=== PATIENT | female | born 1975 | race Caucasian/White ===

== ENCOUNTER 2017-01-24 13:02 | Emergency (ER) | payer MEDICAID ==
[~2017-01-24] VITALS: Ht 170.2 cm; Wt 54.4 kg
[2017-01-24] MEDS ORDERED: TOPI200T PO (13:30)
[2017-01-24] MEDS ORDERED: PANT40TA2 PO (13:30)
[2017-01-24] MEDS ORDERED: ZOLP5TAB2 PO (13:30)
[2017-01-24] MEDS ORDERED: RISP1TAB7 PO (13:30)
[2017-01-24] MEDS ORDERED: SPIR100T3 PO (13:30)
[2017-01-24] MEDS ORDERED: ESCI10TA PO (13:30)
[2017-01-24] MEDS ORDERED: FURO80TA87 PO (13:30)
[2017-01-24] MEDS ORDERED: ONDA4TAB8 PO (13:34)
[2017-01-24] MEDS ORDERED: TRENTAL PO (13:34)
[2017-01-24 13:40] LABS: BASOPHILS # (AUTO) 0.2 K/uL (0.0-8.0); BASOPHILS % (AUTO) 1.5 % (0.0-2.0); EOSINOPHILS # (AUTO) 0.1 K/uL (0.0-0.7); EOSINOPHILS % (AUTO) 0.7 % (0.0-7.0); HEMATOCRIT 38.4 % (37-47); HEMOGLOBIN 12.9 G/DL (12.0-16.0); LYMPHOCYTES % (AUTO) 29.9 % (20.5-51.5); MEAN CORPUSCULAR HEMOGLOBIN 33.1 UUG (27.0-31.0); MEAN CORPUSCULAR HGB CONC 34 g/dL (32.0-37.0); MEAN CORPUSCULAR VOLUME 98.5 FL (81.0-99.0); MONOCYTES # (AUTO) 0.8 K/UL (0.1-1.30); MONOCYTES % (AUTO) 6.3 % (0.0-11.0); NEUTROPHILS # (AUTO) 8.2 K/UL (1.8-8.9); NEUTROPHILS % (AUTO) 61.6 % (38.5-71.5); PLATELET COUNT (AUTO) 502 K/UL (150-450); RED CELL DISTRIBUTION WIDTH 13.9 % (11.5-14.5); WHITE BLOOD COUNT (AUTO) 13.3 K/UL (4.0-11.2)
[2017-01-24 13:53] LABS: ALANINE AMINOTRANSFERASE 24 U/L (14-59); ALBUMIN 3.2 g/dL (3.4-5.0); ALKALINE PHOSPHATASE 104 U/L (50-136); ASPARTATE AMINOTRANSFERASE 31 U/L (15-37); BILIRUBIN,TOTAL 0.2 mg/dL (0.2-1.0); CALCIUM 8.3 mg/dL (8.5-10.1); CARBON DIOXIDE 28 mmol/L (21-32); CHLORIDE 105 mmol/L (98-107); CREATININE 0.6 mg/dL (0.6-1.3); GFR 111 mL/min (>60); GLUCOSE 106 mg/dL (74-106); SODIUM SERUM 143 mmol/L (136-145); TOTAL PROTEIN, SERUM 7.1 g/dL (6.4-8.2); UREA NITROGEN, BLOOD 9 mg/dL (7-18)
[2017-01-24 13:56] LABS: ETHANOL 296 MG/DL (0-0)
[2017-01-24 14:04] LABS: BILIRUBIN,DIRECT < 0.1 mg/dL (0.0-0.2); LIPASE 326 U/L (73-393)
[2017-01-24 14:05] LABS: ACETAMINOPHEN < 2.0 ug/mL (10-30)
--- NOTE | 2017-01-24 14:15 | NUR ---
Pt resting in gurney with eyes closed and no s/s of acute distress noted at this time.
[2017-01-24 14:18] LABS: BAND % (MANUAL) 2 % (0-10); LYMPHOCYTES % (MANUAL) 31 % (20-40); MONOCYTES % (MANUAL) 8 % (2-10); NEUTROPHILS % (MANUAL) 59 % (42-75); PLATELET ESTIMATE SLIGHT INCREASED
[2017-01-24 14:53] LABS: *BILIRUBIN,URIN NEGATIVE (NEGATIVE); *BLOOD, URINE NEGATIVE (NEGATIVE); *CLARITY,URINE CLEAR (CLEAR); *COLOR,URINE STRAW (YELLOW); *KETONES,URINE NEGATIVE (NEGATIVE); *PROTEIN,URINE NEGATIVE (NEGATIVE); *UROBILINOGEN,URINE 0.2 E.U./dl (NORMAL); LEUKOCYTE ESTERASE ,URINE NEGATIVE (NEGATIVE); NITRITE, URINE NEGATIVE (NEGATIVE); UGLUCOSE NEGATIVE (NEGATIVE)
--- NOTE | 2017-01-24 14:53 | NUR ---
Spoke with David Resendiz for psych eval as requested by Dr Beauchamp. Per David pt's ETOH level is too high at this time, he will follow up later when pt's level is lower. Dr Beauchamp notified.
[2017-01-24 14:58] LABS: *AMPHETAMINE, URINE NEGATIVE (NEGATIVE); *BARBITURATE, URINE NEGATIVE (NEGATIVE); *CANNABINOID, URINE NEGATIVE (NEGATIVE); *COCCAINE, URINE NEGATIVE (NEGATIVE); *OPIATE, URINE NEGATIVE (NEGATIVE); *PHENCYCLIDINE SCREEN,URINE NEGATIVE (NEGATIVE)
[2017-01-24 15:14] LABS: BACTERIA,URINE FEW /HPF (NONE SEEN); SQUAMOUS EPITHELIAL CELL,UR FEW /HPF (NONE SEEN); WBC,URINE 0-3 /HPF (0-3)
--- NOTE | 2017-01-24 15:43 | NUR ---
Pt sleeping, NAD noted.
--- NOTE | 2017-01-24 17:45 | NUR ---
Pt is awake, alert and oriented x 4, states she is hungry and would like pain medication. Snacks provided for pt, dinner tray ordered, Dr Beauchamp notified of pt's request for pain medication. Blood drawn by lab fo repeat ETOH level.
--- NOTE | 2017-01-24 18:35 | NUR ---
Pt is sitting in [facility] and eating dinner, pend psych eval.
--- NOTE | 2017-01-24 18:50 | NUR ---
David Resendiz is here for psych eval.
[2017-01-24] MEDS ORDERED: CHLORDIAZEPOXIDE HCL 25 MG CAPSULE PO ONE (20:00)
[2017-01-24] MEDS ORDERED: CHLORDIAZEPOXIDE HCL 25 MG CAPSULE ONE (20:27)
[2017-01-24 22:38] LABS: ETHANOL < 3 MG/DL (0-0)
--- NOTE | 2017-01-24 23:07 | NUR ---
faxed alcohol % to Jill intake for [facility] [phone]
--- NOTE | 2017-01-24 23:17 | NUR ---
Spoke with Jill ( ) intake from [facility]. Informed that patient is accepted. Dr Pizano is accepting
--- NOTE | 2017-01-24 23:22 | NUR ---
ETA of Med Response is 30mins
--- NOTE | 2017-01-25 00:01 | NUR ---
Gave SBAR report to Med response team who will take Patient to [facility]
[2017-01-25 00:10] VITALS: BP 118/84
== END 2017-01-25 00:10 | disposition short-term general hospital (02) ==
LOC: ER 13:05
DX: R10.9 Unspecified abdominal pain (principal); F32.9 Major depressive disorder, single episode, unspecified; G89.29 Other chronic pain; F10.129 Alcohol abuse with intoxication, unspecified; I25.2 Old myocardial infarction; F31.9 Bipolar disorder, unspecified; E03.9 Hypothyroidism, unspecified; C50.919 Malignant neoplasm of unspecified site of unspecified female breast; F10.20 Alcohol dependence, uncomplicated; Z90.49 Acquired absence of other specified parts of digestive tract
CPT/HCPCS: 36415; 80307; 83690; 84703; 85025; A4663; G0480-TC; G6040-TC

== ENCOUNTER 2018-07-05 14:14 | Emergency (ER) | payer MEDICAID ==
[~2018-07-05] VITALS: Ht 170.2 cm; Wt 55.8 kg
[~2018-07-05 14:14] MED LIST: ESCI10TA PO; FURO80TA87 PO; ONDA4TAB8 PO; PANT40TA2 PO; RISP1TAB7 PO; SPIR100T5 PO; TOPI200T PO; TRENTAL PO; ZOLP5TAB2 PO
--- NOTE | 2018-07-05 14:29 | NUR ---
PT IS IN ROOM #1B. DR SLADE EVALUATED THE PT.
--- NOTE | 2018-07-05 16:07 | NUR ---
Patient discharged to home in stable conditon. Written and verbal after care instructions given. Patient verbalizes understanding of instructions.
== END 2018-07-05 16:08 | disposition home or self-care (01) ==
LOC: ER 14:14
DX: F10.129 Alcohol abuse with intoxication, unspecified (principal); I25.2 Old myocardial infarction; E03.9 Hypothyroidism, unspecified; Z90.49 Acquired absence of other specified parts of digestive tract
CPT/HCPCS: 99283; A4663

== ENCOUNTER 2018-07-05 23:25 | Emergency (ER) | payer MEDICAID ==
[~2018-07-05] VITALS: Ht 167.6 cm; Wt 61.2 kg
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
[2018-07-05 23:54] LABS: BASOPHILS # (AUTO) 0.1 K/uL (0.0-8.0); EOSINOPHILS # (AUTO) 0.1 K/uL (0.0-0.7); EOSINOPHILS % (AUTO) 1.3 % (0.0-7.0); HEMATOCRIT 39.9 % (31.2-41.9); HEMOGLOBIN 13.6 g/dL (10.9-14.3); LYMPHOCYTES # (AUTO) 5.1 K/uL (20.0-40.0); LYMPHOCYTES % (AUTO) 48.7 % (20.5-51.5); MEAN CORPUSCULAR HEMOGLOBIN 33.3 uug (24.7-32.8); MEAN CORPUSCULAR HGB CONC 34 g/dL (32.3-35.6); MEAN CORPUSCULAR VOLUME 97.4 fL (75.5-95.3); MONOCYTES # (AUTO) 0.7 K/uL (2.0-10.0); MONOCYTES % (AUTO) 6.5 % (0.0-11.0); NEUTROPHILS # (AUTO) 4.5 K/uL (1.8-8.9); NEUTROPHILS % (AUTO) 42.5 % (38.5-71.5); PLATELET COUNT (AUTO) 335 K/uL (179-408); RED BLOOD CELL COUNT(AUTO) 4.09 MIL/uL (3.63-4.92); WHITE BLOOD COUNT (AUTO) 10.5 K/uL (3.8-11.8)
[2018-07-06] MEDS ORDERED: LORAZEPAM 2 MG/1 ML VIAL ONE ×4 (00:11→01:49)
[2018-07-06] MEDS ORDERED: LORAZEPAM 2 MG/1 ML VIAL IV ONE ×4 (00:15→02:00)
[2018-07-06 00:22] LABS: BILIRUBIN,DIRECT 0.1 mg/dL (0.0-0.2); BILIRUBIN,TOTAL 0.2 mg/dL (0.2-1.0); CREATININE 1.1 mg/dL (0.6-1.3); POTASSIUM 3.4 mmol/L (3.5-5.1); TOTAL PROTEIN, SERUM 8.3 g/dL (6.4-8.2)
--- NOTE | 2018-07-06 01:55 | NUR ---
PT WENT DOWN TO RADIOLOGY DEPT FOR CT SCAN. VSS.
--- NOTE | 2018-07-06 02:19 | NUR ---
PT BACK FROM RADIOLOGY DEPT. NO ACUTE DISTRESS NOTED.
[2018-07-06] MEDS ORDERED: TETRACAINE HCL 0.5% OPHT DROP 2 ML BOTTLE ONE (02:56)
[2018-07-06] MEDS ORDERED: FLUORESCEIN SODIUM 1 MG STRIP ONE (02:57)
[2018-07-06] MEDS ORDERED: FLUORESCEIN SODIUM 1 MG STRIP OP ONE (03:00)
[2018-07-06] MEDS ORDERED: TETRACAINE HCL 0.5% OPHT DROP 2 ML BOTTLE OP ONE (03:00)
--- NOTE | 2018-07-06 06:35 | NUR ---
IV removed. Catheter intact and site benign. Pressure and 4x4 gauze applied to site. No bleeding noted.
--- NOTE | 2018-07-06 06:43 | NUR ---
Patient discharged to home in stable conditon. Written and verbal after care instructions given. Patient verbalizes understanding of instructions. Pt ambulated out of ER in steady gait. All belongings with pt. VSS. AAOX3. No acute distress noted.
[2018-07-06 06:44] VITALS: BP 114/61
== END 2018-07-06 06:44 | disposition home or self-care (01) ==
LOC: ER 23:27
DX: S05.12XA Contusion of eyeball and orbital tissues, left eye, initial encounter (principal); F10.129 Alcohol abuse with intoxication, unspecified; I25.2 Old myocardial infarction; E03.9 Hypothyroidism, unspecified; F17.200 Nicotine dependence, unspecified, uncomplicated; X58.XXXA Exposure to other specified factors, initial encounter; Y93.89 Activity, other specified; Y92.89 Other specified places as the place of occurrence of the external cause; Y99.8 Other external cause status
CPT/HCPCS: 36415; 70450; 70480; 72125; 80048; 80076; 84702; 85025; 85730; 96374 ×2; 96376; 99285; 99406; A4217; A4663; J2060 ×4